=== PATIENT | male | born 1965 | race Caucasian/White ===

== ENCOUNTER 2017-08-20 12:29 | Emergency (ER) | payer MEDICAID ==
[~2017-08-20] VITALS: Ht 182.9 cm; Wt 102.0 kg
[2017-08-20 17:28] LABS: CLARITY URINE CLEAR (CLEAR); COLOR URINE YELLOW (YELLOW); KETONES URINE 2+ (NEGATIVE); LEUKOCYTE ESTERASE URINE NEGATIVE (NEGATIVE); NITRITE URINE NEGATIVE (NEGATIVE); OCCULT BLOOD URINE NEGATIVE (NEGATIVE); PH URINE 5.5 (4.5-8.0); PROTEIN URINE TRACE (NEGATIVE); SPECIFIC GRAVITY URINE 1.034 (1.005-1.030)
[2017-08-20] MEDS ORDERED: HYDROCODONE/APAP 7.5/325MG 1 TAB TABLET PO ONE (17:45)
[2017-08-20 17:52] LABS: BASOPHILS % 0.3 % (0.0-2.0); EOSINOPHILS % 0.9 % (0.0-5.0); HEMATOCRIT. 43.7 % (42.0-52.0); HEMOGLOBIN. 14.7 g/dL (14.0-18.0); LYMPHOCYTES % 20.5 % (20.0-50.0); MEAN CORPUSCULAR HEMOGLOBIN 31.5 pg (28.0-32.0); MEAN CORPUSCULAR VOLUME 93.6 fL (80.0-94.0); MEAN PLATELET VOLUME 7.3 fl (7.4-10.4); MONOCYTES % 7.9 % (2.0-8.0); NEUTROPHILS % 70.4 % (40.0-76.0); PLATELET 274 x1000/uL (130-400); RED BLOOD CELL COUNT 4.67 mill/uL (4.7-6.1); RED CELL DISTRIBUTION WIDTH 14.6 % (11.6-14.6)
[2017-08-20 17:59] LABS: CARBON DIOXIDE 29 mEq/L (21-32); CHLORIDE 100 mEq/L (98-107); ETHANOL BLOOD < 10 mg/dL
[2017-08-20 19:43] VITALS: BP 143/77
== END 2017-08-20 19:45 | disposition home or self-care (01) ==
LOC: ER 15:22
DX: K29.00 Acute gastritis without bleeding (principal)
CPT/HCPCS: 36415; 80053; 81001; 83690; 85025; 99284; G0482; Z7610

== ENCOUNTER 2017-08-20 20:34 | Emergency (ER) | payer MEDICAID | END 2017-08-20 21:19 | disposition left against medical advice (07) | LOC: ER 20:34 | DX: R11.0 Nausea (principal); Z53.21 Procedure and treatment not carried out due to patient leaving prior to being seen by health care provider ==

== ENCOUNTER 2025-01-11 08:36 | Emergency (ER) | payer MEDICAID ==
[~2025-01-11] VITALS: Ht 182.9 cm; Wt 105.0 kg
[2025-01-11 09:20] VITALS: O2SAT 98
[2025-01-11 10:06] LABS: CLARITY URINE CLEAR (CLEAR); COLOR URINE YELLOW (YELLOW); GLUCOSE URINE NEGATIVE (NEGATIVE); KETONES URINE 1+ (NEGATIVE); LEUKOCYTE ESTERASE URINE 1+ (NEGATIVE); NITRITE URINE NEGATIVE (NEGATIVE); OCCULT BLOOD URINE NEGATIVE (NEGATIVE); PH URINE 5.5 (4.5-8.0); PROTEIN URINE NEGATIVE (NEGATIVE); SPECIFIC GRAVITY URINE 1.011 (1.005-1.030); UROBILINOGEN URINE 0.2 E.U./dL (0.2-1.0)
[2025-01-11 10:34] LABS: BACTERIA URINE RARE; RBC URINE NONE SEEN /hpf (0-2); SQUAMOUS EPITHELIAL CELL URINE NONE SEEN /lpf (RARE/1+); YEAST URINE NONE SEEN
[2025-01-11] MEDS: CEFTRIAXONE SODIUM 500MG VIAL IM ONE (11:06)
[2025-01-11] MEDS ORDERED: CEPH500C2 MT (12:10)
[2025-01-11] MEDS ORDERED: DOXY100C5 MT (12:10)
[2025-01-11 12:30] VITALS: BP 147/81; PULSE 49; RESP 16; TEMP 36.6; O2SAT 98
== END 2025-01-11 12:31 | disposition home or self-care (01) ==
LOC: ER 08:36
DX: N39.0 Urinary tract infection, site not specified (principal); Z79.899 Other long term (current) drug therapy
CPT/HCPCS: 99283; 81003; 87086; 96372; J0696

== ENCOUNTER 2025-01-19 08:02 | Emergency (ER) | payer MEDICAID ==
[~2025-01-19] VITALS: Ht 180.3 cm; Wt 95.0 kg
[~2025-01-19 08:02] MED LIST: CEPH500C2 MT; DOXY100C5 MT
[2025-01-19 08:11] VITALS: O2SAT 100
[2025-01-19 08:40] LABS: CLARITY URINE CLEAR (CLEAR); COLOR URINE YELLOW (YELLOW); GLUCOSE URINE NEGATIVE (NEGATIVE); KETONES URINE NEGATIVE (NEGATIVE); LEUKOCYTE ESTERASE URINE NEGATIVE (NEGATIVE); NITRITE URINE NEGATIVE (NEGATIVE); OCCULT BLOOD URINE NEGATIVE (NEGATIVE); PH URINE 5.5 (4.5-8.0); PROTEIN URINE NEGATIVE (NEGATIVE); SPECIFIC GRAVITY URINE 1.021 (1.005-1.030); UROBILINOGEN URINE 0.2 E.U./dL (0.2-1.0)
[2025-01-19] MEDS ORDERED: PHEN-815 PO (08:51)
[2025-01-19 09:01] VITALS: BP 124/77; PULSE 54; RESP 16; TEMP 36.9; O2SAT 100
== END 2025-01-19 09:03 | disposition home or self-care (01) ==
LOC: ER 08:02
DX: R30.0 Dysuria (principal)
CPT/HCPCS: 81003; 99283; Z7610

== ENCOUNTER 2025-07-06 18:58 | Emergency (ER) | payer MEDICAID, OTHER ==
[~2025-07-06] VITALS: Ht 182.9 cm; Wt 102.3 kg
[~2025-07-06 18:58] MED LIST changes: +PHEN-815 PO
[2025-07-06 19:17] VITALS: O2SAT 96
[2025-07-06 19:31] VITALS: BP 131/70; PULSE 57; RESP 18; TEMP 36.8; O2SAT 100
[2025-07-06] MEDS: LIDOCAINE HCL 1% 20ML VIAL INFIL ONE (22:38)
[2025-07-06] MEDS ORDERED: ACET-2708 MT (22:58)
[2025-07-06] MEDS ORDERED: CEPH500T MT (22:58)
[2025-07-06] MEDS: ACETAMINOPHEN 325MG TABLET PO ONE (22:58)
== END 2025-07-06 23:47 | disposition home or self-care (01) ==
LOC: ER 18:58
DX: S61.213A Laceration without foreign body of left middle finger without damage to nail, initial encounter (principal); W22.8XXA Striking against or struck by other objects, initial encounter; Y93.89 Activity, other specified; Y92.89 Other specified places as the place of occurrence of the external cause; Y99.8 Other external cause status
CPT/HCPCS: 99283; 73140; 12002; J2003